=== PATIENT | male | born 1955 | race Two or more races ===

== ENCOUNTER 2018-01-06 12:59 | Outpatient (CLI) | payer OTHER, BC, MEDICARE ==
[~2018-01-06] VITALS: Ht 167.6 cm; Wt 77.6 kg
[2018-01-06] MEDS ORDERED: GEODON40 MG ORAL (15:04)
[2018-01-06] MEDS ORDERED: TRILEPTAL300 MG/5 M PO (15:04)
[2018-01-06] MEDS ORDERED: TRAZODONE HCL100 MG ORAL (15:04)
--- NOTE | 2018-01-06 15:16 | GI Initial Consult Note ---
History of Present Illness General Date patient seen: January 06, 2018 Time patient seen: 15:04 Referring physician: KARLO Reason for Consultation: EUS Present Illness HPI 62 year old male patient referred by Dr. Neff for evaluation of celiac and mediastinal lymph nodes. H/o of esophageal CA with metastasis liver, now s/ p FOLFOX therapy with resolution of metastasis on PET scan on 11/10. He presents today with c/o of GERD and black stool. Had recent EGD November 2017 to evaluate GEJ mass which had undergone an interval shrinkage to previous studies. Also noted findings include irregular Z line suggestive of Ramirez. Denies any unintentional weight loss or changes in dietary habits. No signs of abuse or neglect. Patient is not fall risk. Home Meds Reported Medications Oxcarbazepine (TRILEPTAL) 300 Mg/5 Ml Oral.susp, 600 MG PO, ML 01/06/18 Trazodone Hcl* (DESYREL*) 100 Mg Tablet, 100 MG ORAL BEDTIME, TAB 01/06/18 Ziprasidone Hcl* (GEODON*) 40 Mg Capsule, 60 MG ORAL TWICE A DAY, #60 CAP 0 Refills 01/06/18 Med list reviewed/reconciled: Yes Allergies: Coded Allergies: No Known Allergies (Unverified , 01/06/18) Patient History History Provided By: Patient, Medical Record PMH Narrative Metastatic Liver CA Esophageal CA Depression Past Surgical History: Appendectomy Cholecystectomy Social History: Reports: alcohol use - 3/monthly, other - caffeine Review of Systems All Other Systems: negative except mentioned in HPI Physical Exam T 98.8 BP 140/78 P 65 HT 5'6 WT 171 Sp02 EP Interpretation: reviewed, normal General Appearance: well appearing, no apparent distress, alert Head: normocephalic EENT: PERRL/EOMI, normal ENT inspection Neck: supple Respiratory: normal breath sounds, no respiratory distress Cardiovascular: normal rate Gastrointestinal: normal inspection, non tender, soft, normal bowel sounds, non -distended Rectal: deferred Genitourinary: deferred Musculoskeletal: normal inspection, back normal Neurologic: normal inspection, alert, oriented x3, responsive Psychiatric: normal inspection, judgement/insight normal, memory normal Skin: normal inspection, normal color, no rash, warm/dry, palpation normal, well hydrated Lymphatic: normal inspection, no adenopathy GI: Plan Problems: (1) Status post chemotherapy, time since less than 4 weeks (2) Encounter for diagnostic endoscopy (3) Liver carcinoma (4) Esophageal cancer (5) Depression Plan EGD/EUS on Wednesday01/10/18. - NPO @ [place] day prior procedure. Seen with Dr. Jacobs. Thank you for this patient referral. The patient was seen and examined at bedside and all new and available data was reviewed in the patients chart. I agree with the above findings, impression and plan. (Patient seen earlier today. Signature stamp does not reflect patient encounter time.). - MD Nancy BetancurCopper Springs HospitalCarissa BUHR MILL OPERATOR January 06, 2018 15:16
[2018-01-06 15:32] VITALS: BP 140/78
== END 2018-01-06 13:32 | disposition home or self-care (01) ==
LOC: PAN 12:59
DX: C22.7 Other specified carcinomas of liver (principal); C15.9 Malignant neoplasm of esophagus, unspecified; F32.9 Major depressive disorder, single episode, unspecified; K21.9 Gastro-esophageal reflux disease without esophagitis; Z90.49 Acquired absence of other specified parts of digestive tract; Z90.89 Acquired absence of other organs
CPT/HCPCS: 99201

== ENCOUNTER 2018-01-10 07:40 | Day surgery (SDC) | payer BC, MEDICARE ==
[~2018-01-10] VITALS: Ht 167.6 cm; Wt 76.2 kg
[2018-01-10] VITALS (9 sets, daily range): BP systolic 116–135; BP diastolic 72–83
[~2018-01-10 07:40] MED LIST: GEODON40 MG ORAL; TRAZODONE HCL100 MG ORAL; TRILEPTAL300 MG/5 M PO
--- NOTE | 2018-01-10 09:32 | Pre-Procedure Note/Attestation ---
Pre-Procedure Note/Attestation Complete Prior to Procedure Planned Procedure: not applicable Procedure Narrative: egd/EUS Indications for Procedure Pre-Operative Diagnosis: esoph cancer Attestation I attest that I discussed the nature of the procedure; its benefits; risks and complications; and alternatives (and the risks and benefits of such alternatives ), prior to the procedure, with the patient (or the patient's legal traveling representative). I attest that, if there was a reasonable possibility of needing a blood transfusion, the patient (or the patient's legal traveling representative) was given the [facility] standardized written summary, pursuant to the Ramez Oma Blood Safety Act ([place] Health and Safety Code # 1645, as amended). I attest that I re-evaluated the patient just prior to the surgery and that there has been no change in the patient's H&P, except as documented below: Musa Jacobs MD January 10, 2018 09:32
--- NOTE | 2018-01-10 09:32 | Short Stay Surgery H&P ---
History of Present Illness History of Present Illness Chief Complaint see recent office consult note HPI Dong Vargas is a 62 year old male who was admitted on for Gerd, Abdominal Pain Patient History Allergies: Coded Allergies: No Known Allergies (Unverified , 01/10/18) Medication History Scheduled Trazodone Hcl* (Desyrel*), 100 MG ORAL BEDTIME, (Reported) Ziprasidone Hcl* (Geodon*), 60 MG ORAL TWICE A DAY, (Reported) Miscellaneous Medications Oxcarbazepine (Trileptal), 600 MG PO, (Reported) Physical Exam Vital Signs Last Vital Signs Date Time Temp Pulse Resp B/P (MAP) Pulse Ox O2 Delivery O2 Flow Rate FiO2 01/10/18 08:14 97.6 57 18 129/78 100 Room Air 97.6 Plan Attestation Are the patient's medical conditions optimized for surgery? Musa Jacobs MD January 10, 2018 09:32
[2018-01-10 09:53] LABS: BASOPHILS % (AUTO) 1.6 % (0.0-2.0); EOSINOPHILS % (AUTO) 0.7 % (0.0-3.0); HEMATOCRIT 42.5 % (42.0-52.0); HEMOGLOBIN 14.2 G/DL (14.2-18.0); LYMPHOCYTES % (AUTO) 37.4 % (20.0-45.0); MEAN CORPUSCULAR VOLUME 94 FL (80-99); MONOCYTES % (AUTO) 11.7 % (1.0-10.0); NEUTROPHILS % (AUTO) 48.7 % (45.0-75.0); PLATELET COUNT 139 K/UL (150-450); RED BLOOD COUNT 4.51 M/UL (4.70-6.10); RED CELL DISTRIBUTION WIDTH 12.8 % (11.6-14.8); WHITE BLOOD COUNT 4.2 K/UL (4.8-10.8)
[2018-01-10] MEDS ORDERED: Midazolam 2mg/2ml Inj ONE (10:00)
[2018-01-10] MEDS ORDERED: fentaNYL 100 mcg/2 mL IV ONE (10:00)
[2018-01-10] MEDS ORDERED: LR 1000ml ONE (10:00)
[2018-01-10] MEDS ORDERED: Propofol 200mg/20ml IV ONE (10:00)
[2018-01-10] MEDS ORDERED: LR 1000ml 1,000 ML IVLG SCH (10:03)
--- NOTE | 2018-01-10 10:03 | Anethesia Preoperative Eval ---
Anesthesia Pre-op PMH/ROS General Date of Evaluation: January 10, 2018 Time of Evaluation: 09:40 Anesthesiologist: Samantha ASA Score: ASA 3 Mallampati Score Class I : Soft palate, uvula, fauces, pillars visible Class II: Soft palate, uvula, fauces visible Class III: Soft palate, base of uvula visible Class IV: Only hard plate visible Mallampati Classification: Class II Surgeon: Arlene Diagnosis: Esophagial CA Surgical Procedure: EGD with EUS Anesthesia History: none Family History: no anesthesia problems Allergies: Coded Allergies: No Known Allergies (Unverified , 01/10/18) Medications: see eMAR Past Medical History Cardiovascular: Denies: HTN, CAD, ND, valve dz, arrhythmia, other Pulmonary: Denies: asthma, COPD, RONAL, other Gastrointestinal/Genitourinary: Reports: GERD Neurologic/Psychiatric: Reports: depression/anxiety; Denies: dementia, CVA, TIA, other Endocrine: Denies: DM, hypothyroidism, steroids, other HEENT: Denies: cataract (L), cataract (R), glaucoma, RESIGHINI (L), RESIGHINI (R), other Hematology/Immune: Denies: anemia, DVT, bleeding disorder, other Musculoskeletal/Integumentary: Denies: OA, RA, DJD, DDD, edema, other PMH Narrative: as above PSxH Narrative: see H&P Anesthesia Pre-op Phys. Exam Physician Exam Last Vital Signs Date Time Temp Pulse Resp B/P (MAP) Pulse Ox O2 Delivery O2 Flow Rate FiO2 01/10/18 08:14 97.6 57 18 129/78 100 Room Air 97.6 Constitutional: NAD Neurologic: CN 2-12 intact Cardiovascular: RRR, no M/R/G Respiratory: CTA Gastrointestinal: S/NT/ND Airway Exam Mallampati Score: Class II MO: full Neck: flexdible ROM: full Teeth: missing Dentures: no upper, no lower Anesthesia Pre-op A/P Labs Hematology Test 01/10/18 08:50 White Blood Count 4.2 K/UL (4.8-10.8) L Red Blood Count 4.51 M/UL (4.70-6.10) L Hemoglobin 14.2 G/DL (14.2-18.0) Hematocrit 42.5 % (42.0-52.0) Mean Corpuscular Volume 94 FL (80-99) Mean Corpuscular Hemoglobin 31.4 PG (27.0-31.0) H Mean Corpuscular Hemoglobin Concent 33.4 G/DL (32.0-36.0) Red Cell Distribution Width 12.8 % (11.6-14.8) Platelet Count 139 K/UL (150-450) L Mean Platelet Volume 6.5 FL (6.5-10.1) Neutrophils (%) (Auto) 48.7 % (45.0-75.0) Lymphocytes (%) (Auto) 37.4 % (20.0-45.0) Monocytes (%) (Auto) 11.7 % (1.0-10.0) H Eosinophils (%) (Auto) 0.7 % (0.0-3.0) Basophils (%) (Auto) 1.6 % (0.0-2.0) Coagulation Test 01/10/18 08:50 Prothrombin Time Pending Prothromb Time International Ratio Pending Activated Partial Thromboplast Time Pending Chemistry Test 01/10/18 08:50 Sodium Level Pending Potassium Level Pending Chloride Level Pending Carbon Dioxide Level Pending Blood Urea Nitrogen Pending Creatinine Pending Estimat Glomerular Filtration Rate Pending Glucose Level Pending Calcium Level Pending Total Bilirubin Pending Aspartate Amino Transf (AST/SGOT) Pending Alanine Aminotransferase (ALT/SGPT) Pending Alkaline Phosphatase Pending Total Protein Pending Albumin Pending Globulin Pending Alpha Fetoprotein Pending Carcinoembryonic Antigen Pending Studies Pre-op Studies: EKG Risk Assessment & Plan Assessment: ASA 3 Plan: MAC Status Change Before Surgery: Prakash Anne MD January 10, 2018 10:03
[2018-01-10 10:12] LABS: ANION GAP 8 mmol/L (5-15); BLOOD UREA NITROGEN 20 mg/dL (7-18); CALCIUM 8.7 MG/DL (8.5-10.1); CARBON DIOXIDE 25 MMOL/L (21-32); CHLORIDE 108 MMOL/L (98-107); POTASSIUM 3.9 MMOL/L (3.5-5.1); SODIUM 141 MMOL/L (136-145)
[2018-01-10] MEDS ORDERED: fentaNYL 100 mcg/2 mL IV PRN (10:15)
[2018-01-10 10:16] LABS: ALANINE AMINOTRANSFERASE 34 U/L (12-78); ALBUMIN 3.6 G/DL (3.4-5.0); ALBUMIN/GLOBULIN RATIO 0.9 (1.0-2.7); ALKALINE PHOSPHATASE 58 U/L (46-116); ASPARTATE AMINO TRANSFERASE 29 U/L (15-37); BILIRUBIN,TOTAL 0.2 MG/DL (0.2-1.0)
--- NOTE | 2018-01-10 10:28 | Endoscopy Procedure Note ---
Endoscopy Procedure Note General Indication for Procedure: esoph cancer Procedures Performed: EGD Operative Findings/Diagnosis: esophagitis Specimen: yes Pt Tolerated Procedure Well: Yes Estimated Blood Loss: none Anesthesia Anesthesiologist: preston Anesthesia: MAC Inserted Devices Implant(s) used?: No GI Core Measures 50 yrs or older w/o bx or poly: Not Applicable 10yrs. F/U not recommended: Not Applicable Musa Jacobs MD January 10, 2018 10:28
--- NOTE | 2018-01-10 10:41 | Immediate Post-Op Evaluation ---
Immediate Post-Op Evalulation Immediate Post-Op Evalulation Procedure: EGD with Bx and EUS Date of Evaluation: January 10, 2018 Time of Evaluation: 10:40 IV Fluids: 300 Blood Products: none Estimated Blood Loss: min Urinary Output: none Blood Pressure Systolic: 116 Blood Pressure Diastolic: 57 Pulse Rate: 72 Respiratory Rate: 20 O2 Sat by Pulse Oximetry: 99 Temperature (Fahrenheit): 97.6 Nausea: No Vomiting: No Patient Status: awake, patent, none Hydration Status: adequate Prakash Singh MD January 10, 2018 10:41
--- NOTE | 2018-01-10 12:04 | 48 Hour Post Anesthesia Eval ---
Post Anesthesia Evaluation Procedure: EGD with Bx and EUS Date of Evaluation: January 10, 2018 Time of Evaluation: 12:01 Blood Pressure Systolic: 128 0: 72 Pulse Rate: 64 Respiratory Rate: 20 Temperature (Fahrenheit): 97.6 O2 Sat by Pulse Oximetry: 98 Airway: patent Nausea: No Vomiting: No Pain Intensity: 2 Hydration Status: adequate Cardiopulmonary Status: stable Mental Status/LOC: patient returned to baseline Follow-up Care/Observations: n/a Post-Anesthesia Complications: none Follow-up care needed: ready to discharge Prakash Singh MD January 10, 2018 12:04
--- NOTE | 2018-01-10 16:00 | Procedure Note ---
DATE OF PROCEDURE: 01/10/2018 SURGEON: Musa Jcaobs M.D. PROCEDURE: Upper endoscopy with biopsy and hemostasis and EUS. INSTRUMENT: Olympus adult flexible upper endoscope. ANESTHESIA: Per Dr. Singh. INDICATION: Esophageal malignancy. REASON FOR PROCEDURE: The procedure, risks, benefits, and possible consequences, including hemorrhage, aspiration, perforation and infection, and alternative treatments, were explained to the patient/legal guardian by Dr. Musa Jacobs and the patient/legal guardian understood and accepted these risks. DESCRIPTION OF PROCEDURE: After informed consent was obtained. The patient was adequately sedated, first Olympus upper endoscope was advanced from the mouth into second portion of the duodenum and retroflexion was performed in the stomach. The patient had some inflammatory changes right at the GE junction, which was about 40 cm from the incisors. There was some irregularity at the Z-line. There was one pedunculated inflammatory looking polyp right above the GE junction. This is most probably from the residual chemotherapy. I am not sure if this is a residual malignancy versus inflammatory polyp, but it looks most likely inflammatory polyp given it was pedunculated. The patient also has minimum esophagitis with one linear ulceration very shallow at the GE junction. At this time, the upper endoscope was retrieved and endoscopic ultrasound radial scope was introduced for scanning. We carefully examined the esophagus, celiac axis area. There was no obvious lymphadenopathy. Prior celiac axis adenopathy which was seen by prior EUS was not seen at this time. No periesophageal lymph nodes also was seen at this time. The prior esophageal tumor seems to be completely shrunken. There were some inflammatory changes at the GE junction and above it with irregularity of the lining but no obvious mass was seen. This is most probably an inflammatory response from the shrinkage of the tumor. At this time, the EUS was removed and upper endoscope was reintroduced for biopsying of this polyp. The biopsy was removed with the biopsy forceps technique. There was a minimum bleeding from the base of the polyp. So, we placed the small hemoclip and that controlled the bleeding completely. The patient tolerated the procedure without any complication. SUMMARY FINDINGS: 1. No evidence of any obvious celiac axis lymphadenopathy at this time. 2. No obvious distal esophageal mass was seen. There was only some irregularity of the lining of the esophagus at that area without any obvious mass. 3. Minimum esophagitis. 4. Irregular Z-line. 5. Pedunculated inflammatory looking polyp above the Z-line status post biopsy and hemoclip placement. RECOMMENDATIONS: 1. Follow up biopsy results. 2. The patient to follow up with Dr. Graff, the thoracic surgeon for possible surgery. I want to thank, Dr. Chi Graff for this kind referral. Musa Jacobs M.D. DR: ARABELLA JOB#: [id number] CC: Chi Graff M.D.
--- NOTE | 2018-01-12 17:14 | Cardiology Report ---
APPROVED REPORT EKG Measurement Heart [id number] Sinus bradycardia Otherwise normal ECG
== END 2018-01-10 11:40 | disposition home or self-care (01) ==
LOC: GAS 07:40
DX: K20.9 Esophagitis, unspecified (principal); K31.7 Polyp of stomach and duodenum; R00.1 Bradycardia, unspecified; K21.9 Gastro-esophageal reflux disease without esophagitis; F32.9 Major depressive disorder, single episode, unspecified; F41.9 Anxiety disorder, unspecified
CPT/HCPCS: 36415; 43239; 43259; 80053; 82105; 82378; 85025; 85610; 85730; 93005; J2250; J2704; J3010; J7120; 94003; 94150